=== PATIENT | female | born 1995 | race Caucasian/White ===

== ENCOUNTER 2017-06-05 10:39 | Day surgery (SDC) | payer SELFPAY ==
[~2017-06-05] VITALS: Ht 152.4 cm; Wt 47.2 kg
[2017-06-05 11:08] VITALS: BP 117/76; PULSE 58; TEMP 97.7
[2017-06-05 13:10] VITALS: BP 105/72; PULSE 66; TEMP 98.4
[2017-06-05 13:25] VITALS: BP 103/69; PULSE 60
[2017-06-05 13:40] VITALS: BP 113/84; PULSE 70
[2017-06-05 15:48] VITALS: BP 108/66; PULSE 63
== END 2017-06-05 13:55 | disposition home or self-care (01) ==
LOC: SDCO 10:39
DX: K92.1 Melena (principal); K30 Functional dyspepsia; R63.0 Anorexia
CPT/HCPCS: OP; J2250; J2405; J3010; J7030